=== PATIENT | male | born 1980 | race Caucasian/White ===

== ENCOUNTER 2016-09-19 13:54 | Emergency (ER) | payer OTHER ==
[2016-09-19] MEDS ORDERED: GI Cocktail Oral Solution 30 ML PO ONE (14:27)
--- NOTE | 2016-09-19 14:33 | EDM.PDOC ---
ED HPI GENERAL MEDICAL PROBLEM - General Time Seen by Provider: 09/19/16 14:05 Source of Information: Reports: Patient History Limitations: Reports: No Limitations - History of Present Illness INITIAL COMMENTS - FREE TEXT/NARRATIVE: According to patient he woke up in the morning around 7:30 am and felt some pain in the lower chest( pt points to epigastric region with pain) and the pain has not resolved. Pain is dull achy in nature and radiates to the back.Waxing and waning type. No radiation to right shoulder. No nausea or vomiting. he does burp always, and when he burps the pain slightly worsens. He also hurts when he takes deep breath. No pericardial chest pain.Pain does not get worse with exertion. No shortness of breath, no wheezing. No sweating or weakness. Pt claims that he does get this way, and he takes one zantac and it resolves, but today it has not resolved and hence he is here. Pt takes cetrizine 10mg daily and uses zantac as needed. Treatments STRIP TANK TENDER: Reports: Other Medication(s) Other Treatments STRIP TANK TENDER: zantac Epigastric Pain Score (Numeric/FACES): 8 - Related Data Home Meds: Home Meds Ranitidine HCl [Zantac] 150 mg PO DAILY 09/19/16 [History] Sertraline [Zoloft] 50 mg PO DAILY 09/19/16 [History] ED ROS GENERAL - Review of Systems Review Of Systems: See Below Constitutional: Denies: Fever, Chills HEENT: Denies: Contact Lenses, Sinus Problem, Throat Pain, Throat Swelling Respiratory: Denies: Shortness of Breath, Wheezing, Cough, Sputum Cardiovascular: Denies: Chest Pain, Lightheadedness GI/Abdominal: Reports: Flatus. Denies: Abdominal Pain, Constipation, Distension , Nausea, Vomiting : Denies: Dysuria, Flank Pain Musculoskeletal: Denies: Joint Pain, Joint Swelling Skin: Denies: Jaundice, Bruising, Pruritis, Rash ED EXAM, GENERAL - Physical Exam Exam: See Below Exam Limited By: No Limitations General Appearance: Alert, WD/WN, No Apparent Distress, Anxious Eye Exam: Bilateral Eye: EOMI, PERRL Ears: Normal External Exam, Normal Canal, Hearing Grossly Normal, Normal TMs Ear Exam: Bilateral Ear: Auricle Normal, Canal Normal, TM normal Nose: Normal Inspection, Normal Mucosa, No Blood Throat/Mouth: Normal Inspection, Normal Lips, Normal Teeth, Normal Gums, Normal Oropharynx, Normal Voice, No Airway Compromise Head: Atraumatic, Normocephalic Neck: Normal Inspection, Supple, Non-Tender, Full Range of Motion Respiratory/Chest: No Respiratory Distress, Lungs Clear, Normal Breath Sounds, No Accessory Muscle Use, Chest Non-Tender Cardiovascular: Normal Peripheral Pulses, Regular Rate, Rhythm, No Edema, No Gallop, No JVD, No Murmur, No Rub Peripheral Pulses: 2+: Brachial (L), Brachial (R), Radial (L), Radial (R) GI/Abdominal: Normal Bowel Sounds, Soft, Non-Tender, No Organomegaly, No Distention, No Abnormal Bruit, No Mass Back Exam: Normal Inspection, Full Range of Motion, NT Extremities: Normal Inspection, Normal Range of Motion, Non-Tender, Normal Capillary Refill, No Pedal Edema Neurological: Alert, Oriented, CN II-XII Intact, Normal Cognition, Normal Gait, Normal Reflexes, No Motor/Sensory Deficits EKG INTERPRETATION EKG Date: 09/19/16 Rhythm: NSR [place]: Normal P-Wave: Present QRS: Normal ST-T: Normal QT: Normal Course - Vital Signs Text/Narrative:: Pt has epigastric pain which is of waxing and waning nature. going on since 7: 30 today. No other asso symptoms. He did take zantac and is not better. His EKG is in NSR. His CBC, CMP, Troponin, Amylase and lipase are normal. He probably has mild gastritis or dyspepsia. He did receive GI cocktail which has helped with his symptoms. I have reassured patient that he does not have any acute cardiac or GI signs.It does appear like peptic ulcer disease. I have started him on prilosec 40mg daily. [place] diet, avoid deep fried food. Followup with is primary care provider. Last Recorded V/S: Last Vital Signs Temp 99.2 F 09/19/16 14:49 Pulse 92 09/19/16 14:49 Resp 18 09/19/16 14:49 BP 131/74 09/19/16 14:49 Pulse Ox 98 09/19/16 14:49 - Orders/Labs/Meds Orders: Active Orders 24 hr Category Date Time Status EKG Documentation Completion [RC] ASDIRECTED Care 09/19/16 14:26 Ordered Labs: Laboratory Tests 09/19/16 09/19/16 Range/Units 14:30 14:30 WBC 11.7 H (4.0-11.0) K/uL RBC 4.99 (4.50-6.50) M/uL Hgb 14.8 (13.0-18.0) g/dL Hct 42.1 (40.0-54.0) % MCV 84 (76-96) fL MCH 29.7 (27.0-32.0) pg MCHC 35.2 H (31.0-35.0) g/dL RDW 12.9 (11.0-16.0) % Plt Count 144 L (150-400) K/uL MPV 10.4 H (6.0-10.0) fL Neut % (Auto) 79.0 H (45.0-70.0) % Lymph % (Auto) 13.1 L (20.0-40.0) % Burt % (Auto) 6.3 (3.0-10.0) % Eos % (Auto) 1.3 (1.0-5.0) % Baso % (Auto) 0.3 (0.0-0.5) % Neut # (Auto) 9.24 H (2.00-7.50) K/uL Lymph # (Auto) 1.53 (1.50-4.00) K/uL Burt # (Auto) 0.74 (0.20-0.80) K/uL Eos # (Auto) 0.15 (0.04-0.40) K/uL Baso # (Auto) 0.03 (0.02-0.10) K/uL Sodium 141 (136-145) mmol/L Potassium 3.9 (3.5-5.1) mmol/L Chloride 103 (98-107) mmol/L Carbon Dioxide 26.6 (21.0-32.0) mmol/L Anion Gap 15.3 H (5.0-15.0) mmol/L BUN 17 (8-26) mg/dL Creatinine 1.05 (0.70-1.30) mg/dL Est Cr Clr Drug Dosing 110.90 mL/min Estimated GFR (MDRD) > 60 (>60) MLS/MIN BUN/Creatinine Ratio 16.2 (6-25) Glucose 95 (74-100) mg/dL Calcium 8.7 (8.5-10.1) mg/dL Total Bilirubin 0.8 (0.0-1.0) mg/dL AST 18 (15-37) U/L ALT 41 (12-78) U/L Alkaline Phosphatase 72 (46-116) U/L Troponin I < 0.017 (0.000-0.060) ng/mL Total Protein 7.4 (6.4-8.2) g/dL Albumin 3.9 (3.4-5.0) g/dL Globulin 3.5 (2.2-4.2) g/dL Albumin/Globulin Ratio 1.1 (0.8-2.0) Amylase 70 (25-115) U/L Lipase 167 (73-393) U/L Meds: Medications Discontinued Medications Generic Name Dose Route Start Last Admin Trade Name Freq PRN Reason Stop Dose Admin Al Hydroxide/Mg Hydroxide 30 ml 09/19/16 14:27 09/19/16 14:30 Gi Cocktail PO 09/19/16 14:28 30 ml ONETIME ONE Administration Departure - Departure Time of Disposition: 15:15 Disposition: Home, Self-Care 01 Condition: Good Clinical Impression: Nonulcer dyspepsia - Discharge Information Additional Instructions: I have reassured patient that he does not have any acute cardiac or GI signs. All his lab work appear normal. It does appear like nonulcer dyspepsia. I have started him on prilosec 40mg daily. [place] diet, avoid deep fried food. Followup with is primary care provider. - Problem List & Annotations (1) Nonulcer dyspepsia Status: Acute Current Visit: Yes - Problem List Review Problem List Initiated/Reviewed/Updated: Yes - My Orders Last 24 Hours: My Active Orders 09/19/16 14:26 EKG Documentation Completion [RC] ASDIRECTED - Assessment/Plan Last 24 Hours: My Active Orders 09/19/16 14:26 EKG Documentation Completion [RC] ASDIRECTED Assessment:: Dyspepsia Plan: Pt has epigastric pain which is of waxing and waning nature. going on since 7: 30 today. No other asso symptoms. He did take zantac and is not better. His EKG is in NSR. His CBC, CMP, Troponin, Amylase and lipase are normal. He probably has mild gastritis or dyspepsia. He did receive GI cocktail which has helped with his symptoms. I have reassured patient that he does not have any acute cardiac or GI signs.It does appear like peptic ulcer disease. I have started him on prilosec 40mg daily. [place] diet, avoid deep fried food. Followup with is primary care provider.
[2016-09-19 14:50] VITALS: BP 131/74
[2016-09-19] MEDS ORDERED: Omeprazole 40 MG Cap.CR ONE (15:13)
[2016-09-19] MEDS ORDERED: Omeprazole 40 MG Cap.CR PO ONE (15:15)
== END 2016-09-19 15:19 | disposition home or self-care (01) ==
LOC: LB.ED 13:54
DX: R10.13 Epigastric pain (principal); Z79.899 Other long term (current) drug therapy
CPT/HCPCS: 36415; 80053; 82150; 83690; 84484; 85025; 93005; 99284; A9270

== ENCOUNTER 2024-05-17 16:32 | Emergency (ER) | payer BC, OTHER ==
[2024-05-17] MEDS: Lidocaine 2% 5 ML SDV INJECT ONE (16:49)
[2024-05-17] MEDS: Diphtheria,Pertussis(Acell),Tetanus Vaccine 0.5 ML Syringe IM ONE (17:13)
[2024-05-17 18:04] VITALS: BP 158/98; PULSE 77
== END 2024-05-17 17:17 | disposition home or self-care (01) ==
LOC: LB.ED 16:32
DX: S60.453A Superficial foreign body of left middle finger, initial encounter (principal); Z79.899 Other long term (current) drug therapy; W45.8XXA Other foreign body or object entering through skin, initial encounter; Z23 Encounter for immunization
CPT/HCPCS: 64450; 90471; 90715; 99283; 99283-25; J2003